=== PATIENT | female | born 1995 | race Caucasian/White ===

== ENCOUNTER 2016-10-19 04:33 | Emergency (ER) | payer OTHER, SELFPAY ==
[~2016-10-19 04:33] MED LIST: COLACE100 MG PO; FEOSOL-DPS325 MG PO; MOTRIN-DPS800 MG PO; PRENATAL VIT1 TAB PO; TYLENOL #3 DPS1 TAB PO
--- NOTE | 2016-10-19 19:07 | ER ---
ADMIT: 10/19/2016 RM/LOC: ER [facility] MR#: [id number] [id number] KASSANDRA ALTAMIRANO [address] [place] [address] Emergency Room Report SEX: F AGE: 21 : 1995 DATE: 10/19/2016 HISTORY OF PRESENT ILLNESS: The patient is a 21-year-old female with no specific past medical history, who came to the ER with chief complaint of suprapubic and right lower quadrant pain with the last 2 hours. The patient states the pain is sharp and moderate in severity and continues. The patient also has some nausea without any vomiting. The patient denies any urinary symptoms. 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 The patient had normal bowel movement. The patient denies any vaginal discharge. PHYSICAL EXAMINATION: VITAL SIGNS: The patient was afebrile in the ER. Vitals were stable. GENERAL: The patient was in mild distress. The patient was alert and oriented. HEAD and NECK: Noncontributory. LUNGS: Normal breath sounds bilaterally. HEART: Normal heart sounds without any murmurs. ABDOMEN: Nonrigid and no guarding or no rebound. The patient had mild tenderness on suprapubic and right lower quadrant area. The patient had no CVA tenderness. The rest of the physical exam is noncontributory. The patient had negative urine test. UA was also normal. The patient had WBC of 11.3 with left shift with hemoglobin of 13.2, and platelet of 220. Lipase was normal and the rest of the CMP was also noncontributory. The patient received pain control and received Zofran for nausea. The patient was re-examined and still had some right lower quadrant and suprapubic tenderness. The patient was signed out to the next shift to follow up on the results of the CT scan of the abdomen and pelvis and assess the patient, and dispo accordingly. Fredi Osorio MD/ vanessa JOB #: [id number] CC: Fredi Osorio MD, Attending Physician
--- NOTE | 2016-10-20 16:19 | ER ---
ADMIT: 10/19/2016 RM/LOC: ER [facility] MR#: [id number] [address] KASSANDRA ALTAMIRANO [address] [place] [address] Emergency Room Report SEX: F AGE: 21 : 1995 DATE: 10/19/2016 TIME: 0433. PRIMARY CARE: Assigned here to Dr. Seo. Please refer to Dr. Osorio's T sheet for complete H and P. HISTORY OF PRESENT ILLNESS: Briefly, the patient comes with abdominal pain for the last couple hours. No vomiting. She says it is lower quadrant. I am following up on her CAT scan. The CAT scan showed appendix slightly upper limits normal. Otherwise, no other acute findings. No inflammation, normal gas pattern. No thickened wall. No fluid. They did see irregularity in the right pelvis. They thought it could be an ovarian cyst. Would like an ultrasound to further define this. We did an ultrasound that revealed essentially normal pelvic ultrasound. CBC was normal except white count 11.3. Chemistries normal including lipase. UA normal. negative. She received normal saline, a liter bolus, 4 of Zofran while here. They did give her 2 morphine. Her pain was improved. I had a long discussion with her. I told her that she needed close followup. I talked to Dr. Seo and they will follow her up here in town tomorrow. ASSESSMENT: Abdominal pain with appendix on the CAT scan, it is upper limits of normal. Otherwise, everything looks normal. Here, she is improved. PLAN: Fluids, return if worse. Tylenol and Motrin. Follow up with [facility] tomorrow. Jose Luis Gabriel MD/ vanessa JOB #: [id number] CC: Fredi Osorio MD, Attending Physician Jonas Rios MD, Family Physician
== END 2016-10-19 09:06 | disposition home or self-care (01) ==
LOC: ER 04:33
DX: R10.31 Right lower quadrant pain (principal); I10 Essential (primary) hypertension; Z88.1 Allergy status to other antibiotic agents